=== PATIENT | male | born 1960 | race Hispanic/Latino ===

== ENCOUNTER 2018-01-18 21:31 | Emergency (ER) | payer MEDICARE ==
[2018-01-18] MEDS ORDERED: ASPIRIN PO ONE (21:42)
[2018-01-18 22:11] LABS: Basophils % (Auto) 0.5 % (0.0-1.8); Eosinophils % (Auto) 0.4 % (0.0-4.3); Hematocrit 36.4 % (35.5-45.6); Hemoglobin 12.2 gm/dl (11.8-15.2); Lymphocytes # (Auto) 2.1 K/mm3 (1.2-5.4); Lymphocytes % (Auto) 29.7 % (13.4-35.0); Mean Corpuscular HGB Conc 34 % (32-34); Mean Corpuscular Hemoglobin 36 pg (28-32); Mean Corpuscular Volume 109 fl (84-94); Monocytes # (Auto) 0.6 K/mm3 (0.0-0.8); Monocytes % (Auto) 8.4 % (0.0-7.3); Red Blood Count 3.35 M/mm3 (3.65-5.03); Red Cell Distribution Width 19.2 % (13.2-15.2)
[2018-01-18 22:24] LABS: Alanine Aminotransferase 20 units/L (7-56); BUN/Creatinine Ratio 12; Blood Urea Nitrogen 14 mg/dL (9-20); Calcium 9.3 mg/dL (8.4-10.2); Hemolysis Index 0; Lipase 18 units/L (13-60)
[2018-01-18] MEDS ORDERED: DUONEB *Not for PRN Use IH ONE ×2 (22:32→22:33)
[2018-01-18 22:53] LABS: Platelet Count 86 K/mm3 (140-440)
[2018-01-19 02:03] VITALS: BP 153/70
[2018-01-19] MEDS ORDERED: DILAUDID IV ONE (02:40)
[2018-01-19] MEDS ORDERED: NACL 0.9% 1000 ML 1,000 ML IV ONE (02:41)
--- NOTE | 2018-01-19 02:42 | Emergency Department Report ---
ED Abdominal Pain HPI - General Chief Complaint: Abdominal Pain Stated Complaint: SOB Source: patient Mode of arrival: Wheelchair Limitations: No Limitations - History of Present Illness Initial Comments: 57-year-old male past medical history obesity,, aortic aneurysm, DVTs, open heart surgery, COPD, CHF, MD, hypertension presents with complaint of a large ventral hernia. Patient has had large ventral hernia for several years but states that he has had discomfort overlying typical hernia site more than usual for a few days. Visible large protrusion from central abdomen. Patient denies nausea vomiting fever or chills. Patient states that hernia has been gradually getting bigger over time and that it is reducible. Patient is awake alert and oriented 3. Does not appear to be in acute distress but does state he has some pain along the edges of hernia. Patient states he has had ruptured hernia mesh in the past. MD Complaint: abdominal pain Onset/Timin -: days(s) Location: periumbilical Migration to: periumbilical Severity: mild Quality: aching Consistency: intermittent - Related Data Home Medications Medication Instructions Recorded Confirmed Last Taken ALBUTEROL Inhaler [ProAir HFA 06/29/13 06/29/13 Unknown Inhaler] Atorvastatin Calcium [Lipitor] 40 mg PO DAILY 06/29/13 06/29/13 Unknown Cilostazol [Pletal] 50 mg PO DAILY 06/29/13 06/29/13 Unknown Fondaparinux (Nf) [Arixtra (Nf)] 06/29/13 06/29/13 Unknown Furosemide [Lasix] 40 mg PO DAILY 06/29/13 06/29/13 Unknown Ipratropium/Albuter (Nf) 2 puff IH QID 06/29/13 06/29/13 Unknown [Combivent Inhaler] Mometasone Furoate [Elocon] 06/29/13 06/29/13 Unknown OLANzapine [ZyPREXA] 5 mg PO QDAY 06/29/13 06/29/13 Unknown Omeprazole [PriLOSEC] 40 DAILY 06/29/13 06/29/13 Unknown Pregabalin [Lyrica] 50 mg PO TID 06/29/13 06/29/13 Unknown Zolpidem [Ambien] 5 HS 06/29/13 06/29/13 Unknown amLODIPine [Norvasc] 10 mg PO DAILY 06/29/13 06/29/13 Unknown lamoTRIgine [LaMICtal] 200 mg PO QDAY 06/29/13 06/29/13 Unknown metFORMIN [Glucophage] 500 mg PO DAILY 06/29/13 06/29/13 Unknown Previous Rx's Medication Instructions Recorded Last Taken Type Oseltamivir [Tamiflu] 75 mg PO BID #8 capsule 07/01/13 Unknown Rx Docusate Sodium [Colace CAP] 100 mg PO BID PRN #30 capsule 01/19/18 Unknown Rx Ibuprofen [Motrin] 800 mg PO Q8HR PRN #20 tablet 01/19/18 Unknown Rx Allergies Allergy/AdvReac Type Severity Reaction Status Date / Time Penicillins Allergy Rash Verified 06/29/13 12:31 ED Review of Systems ROS: Stated complaint: SOB Other details as noted in HPI Constitutional: denies: chills, fever Eyes: denies: eye pain, eye discharge, vision change ENT: denies: ear pain, throat pain Respiratory: denies: cough, shortness of breath, wheezing Cardiovascular: denies: chest pain, palpitations Endocrine: no symptoms reported Gastrointestinal: abdominal pain. 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 DVT's - Surgical History Past Surgical History?: Yes Hx Open Heart Surgery: Yes Additional Surgical History: open heart in 2003, colon resection secondary to perforation. hip right replacement - Social History Smoking Status: Current Some Day Smoker Substance Use Type: None - Medications Home Medications: Home Medications Medication Instructions Recorded Confirmed Last Taken Type ALBUTEROL Inhaler [ProAir HFA 06/29/13 06/29/13 Unknown History Inhaler] Atorvastatin Calcium [Lipitor] 40 mg PO DAILY 06/29/13 06/29/13 Unknown History Cilostazol [Pletal] 50 mg PO DAILY 06/29/13 06/29/13 Unknown History Fondaparinux (Nf) [Arixtra (Nf)] 06/29/13 06/29/13 Unknown History Furosemide [Lasix] 40 mg PO DAILY 06/29/13 06/29/13 Unknown History Ipratropium/Albuter (Nf) 2 puff IH QID 06/29/13 06/29/13 Unknown History [Combivent Inhaler] Mometasone Furoate [Elocon] 06/29/13 06/29/13 Unknown History OLANzapine [ZyPREXA] 5 mg PO QDAY 06/29/13 06/29/13 Unknown History Omeprazole [PriLOSEC] 40 DAILY 06/29/13 06/29/13 Unknown History Pregabalin [Lyrica] 50 mg PO TID 06/29/13 06/29/13 Unknown History Zolpidem [Ambien] 5 HS 06/29/13 06/29/13 Unknown History amLODIPine [Norvasc] 10 mg PO DAILY 06/29/13 06/29/13 Unknown History lamoTRIgine [LaMICtal] 200 mg PO QDAY 06/29/13 06/29/13 Unknown History metFORMIN [Glucophage] 500 mg PO DAILY 06/29/13 06/29/13 Unknown History Oseltamivir [Tamiflu] 75 mg PO BID #8 capsule 07/01/13 Unknown Rx Docusate Sodium [Colace CAP] 100 mg PO BID PRN #30 capsule 01/19/18 Unknown Rx Ibuprofen [Motrin] 800 mg PO Q8HR PRN #20 tablet 01/19/18 Unknown Rx ED Physical Exam - General Limitations: No Limitations General appearance: alert, in no apparent distress - Head Head exam: Present: atraumatic, normocephalic - Eye Eye exam: Present: normal appearance - ENT ENT exam: Present: mucous membranes moist - Neck Neck exam: Present: normal inspection - Respiratory Respiratory exam: Present: normal lung sounds bilaterally. Absent: respiratory distress - Cardiovascular Cardiovascular Exam: Present: regular rate, normal rhythm. Absent: systolic murmur, diastolic murmur, rubs, gallop - GI/Abdominal GI/Abdominal exam: Present: distended (large ventral hernia approximately the size of an orange mid abdomen to the left upper region above the umbilicus. Patient states that he has had this here for several years but it is bothering him worse in the last 2-3 days. Patient has several scars from previous surgeries on abdomen), tenderness, normal bowel sounds, hernia - Rectal Rectal exam: Present: deferred - Extremities Exam Extremities exam: Present: normal inspection - Back Exam Back exam: Present: normal inspection - Neurological Exam Neurological exam: Present: alert, oriented X3 - Psychiatric Psychiatric exam: Present: normal affect, normal mood - Skin Skin exam: Present: warm, dry, intact, normal color. Absent: rash ED Course Vital Signs 01/18/18 01/18/18 01/18/18 21:35 22:38 22:48 Temperature 98.5 F Pulse Rate 61 Pulse Rate [ 87 92 H Anterior Bilateral Throughout] Respiratory 20 Rate Respiratory 18 18 Rate [Anterior Bilateral Throughout] Blood Pressure 131/61 Blood Pressure [Right] O2 Sat by Pulse 96 Oximetry 01/19/18 02:02 Temperature Pulse Rate 88 Pulse Rate [ Anterior Bilateral Throughout] Respiratory 18 Rate Respiratory Rate [Anterior Bilateral Throughout] Blood Pressure Blood Pressure 153/70 [Right] O2 Sat by Pulse 99 Oximetry ED Medical Decision Making - Lab Data Result diagrams: 01/18/18 21:58 01/18/18 21:58 - Medical Decision Making A/P: Reducible ventral hernia 1-CT shows no obstruction at this time 2-case discussed with Dr. Jones manually reduced patient's hernia 3-Motrin when necessary, follow-up with general surgery. Patient states that he take stool softeners and has Colace at home 4-I advised patient to return to ED for any fevers chills reducibility of hernia or worsening abdominal pain. Critical care attestation.: If time is entered above; I have spent that time in minutes in the direct care of this critically ill patient, excluding procedure time. ED Disposition Clinical Impression: Ventral hernia Qualifiers: Obstruction and gangrene presence: without obstruction or gangrene Qualified Code(s): K43.9 - Ventral hernia without obstruction or gangrene Disposition: -01 TO HOME OR SELFCARE Is pt being admited?: No Does the pt Need Aspirin: No Condition: Stable Instructions: Ventral Hernia (ED) Prescriptions: Docusate Sodium [Colace CAP] 100 mg PO BID PRN #30 capsule PRN Reason: Constipation Ibuprofen [Motrin] 800 mg PO Q8HR PRN #20 tablet PRN Reason: Pain , Severe (7-10) Referrals: PRIMARY CAREMD [Primary Care Provider] - 3-5 Days DONNELL URIAS MD [Staff Physician] - 3-5 Days Time of Disposition: 04:35
[2018-01-19] MEDS ORDERED: DILAUDID ONE (02:45)
[2018-01-19] MEDS ORDERED: ZOFRAN IV ONE (04:03)
--- NOTE | 2018-01-19 04:59 | Cat Scan Report ---
FINAL REPORT PROCEDURE: CT ABDOMEN PELVIS W CON TECHNIQUE: Computerized axial tomography of the abdomen and pelvis was performed after the IV injection of iodinated nonionic contrast. HISTORY: severe abd pain , hx of recurrent hernias COMPARISON: No prior studies are available for comparison. FINDINGS: Visualized lower thorax: Mild atelectasis bilateral lower lungs. Liver: Normal size and attenuation. Spleen: Normal size and attenuation. Gallbladder and biliary system: Normal. Pancreas: Normal. Adrenals: Normal. Kidneys: Normal. GI tract: No obstruction. No ileus or enteritis. The cecum, appendix and colon are normal.. Lymph nodes and mesentery: Normal. Vasculature: There is endovascular stenting in the aorta extending into the iliac arteries.. Bladder: Normal. Reproductive organs: Normal. Peritoneum: No free fluid. Musculoskeletal structures: There is a ventral hernia cavity with a loop of colon identified within the cavity. The loop of colon is not dilated. Just below this hernia cavity there is a slight anterior abdominal wall fluid collection consistent with change from previous hernia repair.. Other: None. IMPRESSION: There is no evidence of intestinal or urinary tract obstruction. No ileus or enteritis. The appendix is normal. Ventral hernia containing a loop of nondilated colon. Previous hernia repair this region. Endovascular stenting in the aorta and proximal iliac arteries.
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
== END 2018-01-19 04:50 | disposition home or self-care (01) ==
LOC: ED 21:47
DX: K43.9 Ventral hernia without obstruction or gangrene (principal); I10 Essential (primary) hypertension; I25.2 Old myocardial infarction; I50.9 Heart failure, unspecified; E11.9 Type 2 diabetes mellitus without complications; Z72.0 Tobacco use; Z86.711 Personal history of pulmonary embolism; Z88.0 Allergy status to penicillin
CPT/HCPCS: 36415; 71046; 74177; 80053; 83690; 83880; 84484; 85025; 86850; 86900; 86901; 93005; 93010; 94640; 96374; 99285; J1170; J7030; Q9967